=== PATIENT | male | born 1990 | race African-American/Black ===

== ENCOUNTER 2017-03-07 18:00 | Emergency (ER) | payer OTHER ==
[~2017-03-07] VITALS: Ht 175.3 cm; Wt 74.8 kg
[2017-03-07] MEDS ORDERED: CLON0.1T PO (18:12)
[2017-03-07] MEDS ORDERED: BUPR200T2 PO (18:12)
--- NOTE | 2017-03-07 18:45 | NUR ---
DR JERRY AT THE BEDSIDE FOR EXAM AND EVAL.
--- NOTE | 2017-03-07 18:50 | NUR ---
PER EXPLANATION THAT PT PROVIDED FOR DR JERRY, HE IS CALLING TO [facility] TO BE ADMITTED, AND WILL BE PICKED UP BY FACILITY REP.
--- NOTE | 2017-03-07 19:45 | NUR ---
pt on meena - with coat over head - initally receptive then becomes verbally agressive and postures when asked of recent heated discusion on phone - RN instructed that pt was waiting for phone call for arrangements to go to detox center. Pt states they said an hour ago they were coming to get me and now they are saying they have to wait until morning until the morning when they can check out my insurance before they can come and get me. Pt voicing frustration regarding the "detox industry" becoming verbally abusive to nurse attending rn attempting to de-escalate pt and provide pt with opportunity to discuss his concerns Pt voicing increased agitation with the system. RN setting limits in regards to agressive posture taken by pt and ancouraged pt to work with us as we attempt to provide for his needs pt appears to be calming down.
--- NOTE | 2017-03-07 20:40 | NUR ---
pt recently agitated - posturing and aggressive - limits set - pt escallating - code yasmani called - social media coordinator recently attending report pt inability to admit pt or stay in ER as he has been cleared by the ER MD for discharge - pt calming with multiple male personel attending - after care instructions provided - pt declines to sign acknowledgement of information provided. pt ambulating uneventfully to private transportation
[2017-03-08 02:26] VITALS: BP 110/61
== END 2017-03-07 20:40 | disposition home or self-care (01) ==
LOC: ER 18:01
DX: F41.9 Anxiety disorder, unspecified (principal); F43.10 Post-traumatic stress disorder, unspecified; F17.200 Nicotine dependence, unspecified, uncomplicated
CPT/HCPCS: A4663

== ENCOUNTER 2017-09-14 23:10 | Emergency (ER) | payer OTHER ==
[~2017-09-14] VITALS: Ht 175.3 cm; Wt 74.8 kg
[~2017-09-14 23:10] MED LIST: BUPR200T2 PO; CLON0.1T PO
--- NOTE | 2017-09-14 23:34 | NUR ---
Dr. Layne at bedside for MSE.
[2017-09-14] MEDS ORDERED: LORAZEPAM 0.5 MG TABLET PO ONE (23:45)
--- NOTE | 2017-09-14 23:45 | NUR ---
Patient discharged to home in stable conditon. Written and verbal after care instructions given. Patient verbalizes understanding of instructions. Patient ambulated out of ER with steady gait, no acute signs of distress, VSS, all belongings taken.
[2017-09-14] MEDS ORDERED: LORAZEPAM 1 MG TABLET ONE (23:46)
[2017-09-14 23:57] VITALS: BP 133/76
== END 2017-09-14 23:45 | disposition home or self-care (01) ==
LOC: ER 23:12
DX: Z76.0 Encounter for issue of repeat prescription (principal); Z79.899 Other long term (current) drug therapy
CPT/HCPCS: 99283; A4663